=== PATIENT | male | born 1990 | race Caucasian/White ===

== ENCOUNTER → 2019-07-10 | Outpatient (CLI) | payer BC | LOC: RAD 08:20 | DX: R10.11 Right upper quadrant pain (principal); R94.5 Abnormal results of liver function studies ==

== ENCOUNTER 2019-08-18 21:53 | Emergency (ER) | payer BC ==
[~2019-08-18] VITALS: Ht 185.4 cm; Wt 110.5 kg
[2019-08-18] MEDS ORDERED: TRAMADOL 50 MG TAB PO (22:05)
[2019-08-18 22:29] LABS: BASO # 0.1 (0.02-0.10); EOS # 0.3 (0.04-0.40); HEMATOCRIT 44.1 % (42.0-52.0); HEMOGLOBIN 14.6 g/dL (13.5-18.0); LYMPH# 1.6 (1.50-4.00); MEAN CELL VOLUME 90 fl (78-100); MEAN CORPUSCULAR HEMOGLOBIN 30 pg (27-31); MEAN CORPUSCULAR HGB CONC 33 g/dL (33-37); MEAN PLATELET VOLUME 10.8 fl (7.4-10.4); MONO # 0.8 (0.20-0.80); NEU # 4.5 (1.40-6.50); PLATELET COUNT 226 K/mm3 (130-400); RED CELL DISTRIBUTION WIDTH 13.2 % (11.5-14.5); WHITE BLOOD COUNT 7.3 K/mm3 (4.8-10.8)
[2019-08-18 22:36] LABS: ALBUMIN 4.5 g/dL (3.5-5.0); POTASSIUM 3.9 mmol/L (3.5-5.1)
[2019-08-18 22:37] LABS: CALCIUM 8.5 mg/dL (8.3-10.5)
[2019-08-18 22:38] LABS: TOTAL PROTEIN 7.4 g/dL (6.4-8.3)
[2019-08-18 22:40] LABS: TOTAL BILIRUBIN 0.5 mg/dL (0.2-1.2)
[2019-08-19 00:06] VITALS: BP 142/80
== END 2019-08-18 23:54 | disposition home or self-care (01) ==
LOC: ED 21:53
PROVIDERS: Family Medicine
DX: K64.9 Unspecified hemorrhoids (principal); M54.9 Dorsalgia, unspecified; G89.29 Other chronic pain; Z79.891 Long term (current) use of opiate analgesic

== ENCOUNTER 2021-12-05 04:21 | Emergency (ER) | payer OTHER ==
[~2021-12-05] VITALS: Ht 185.4 cm; Wt 110.5 kg
[~2021-12-05 04:21] MED LIST: TRAMADOL 50 MG TAB PO
[2021-12-05 06:41] LABS: HEMATOCRIT 52.4 % (42.0-52.0); HEMOGLOBIN 18.1 g/dL (13.5-18.0); MEAN CELL VOLUME 89 fl (78-100); MEAN CORPUSCULAR HEMOGLOBIN 31 pg (27-31); MEAN CORPUSCULAR HGB CONC 35 g/dL (33-37); MEAN PLATELET VOLUME 11.1 fl (7.4-10.4); PLATELET COUNT 317 K/mm3 (130-400); RED BLOOD COUNT 5.86 M/mm3 (4.20-5.60); RED CELL DISTRIBUTION WIDTH 12.3 % (11.5-14.5); WHITE BLOOD COUNT 9.6 K/mm3 (4.8-10.8)
[2021-12-05 06:50] LABS: ALBUMIN 4.6 g/dL (3.5-5.0); POTASSIUM 3.9 mmol/L (3.5-5.1)
[2021-12-05 06:51] LABS: CALCIUM 10.5 mg/dL (8.3-10.5)
[2021-12-05 06:52] LABS: TOTAL PROTEIN 7.6 g/dL (6.4-8.3)
[2021-12-05 06:54] LABS: PROTHROMBIN TIME 10.4 SECONDS (9.0-12.0); TOTAL BILIRUBIN 1.1 mg/dL (0.2-1.2)
[2021-12-05 07:14] LABS: LYMPHOCYTE 7 % (20-51); MONOCYTE 8 % (3-10); NEUTROPHILS 83 % (42-75)
[2021-12-05 07:37] LABS: URINE APPEARANCE CLEAR; URINE BILIRUBIN NEGATIVE (NEGATIVE); URINE BLOOD NEGATIVE (NEGATIVE); URINE COLOR YELLOW; URINE GLUCOSE NEGATIVE (NEGATIVE); URINE KETONE NEGATIVE (NEGATIVE); URINE LEUKOCYTE ESTERASE NEGATIVE (NEGATIVE); URINE NITRATE NEGATIVE (NEGATIVE); URINE PROTEIN(semi-quant) NEGATIVE (NEGATIVE); URINE UROBILINOGEN NORMAL (NORMAL); URINE WBC 0 /hpf (0-3)
[2021-12-05] MEDS ORDERED: ZOFRAN ODT4 MG PO (08:54)
[2021-12-05 09:28] VITALS: BP 146/82
== END 2021-12-05 09:10 | disposition home or self-care (01) ==
LOC: ED 04:21
PROVIDERS: Nurse Practitioner
DX: B34.9 Viral infection, unspecified (principal); R11.2 Nausea with vomiting, unspecified; F17.210 Nicotine dependence, cigarettes, uncomplicated; Z28.310 Unvaccinated for COVID-19; Z20.822 Contact with and (suspected) exposure to COVID-19
CPT/HCPCS: J2405; J3010; J7030

== ENCOUNTER → 2022-08-05 | Outpatient (CLI) | payer OTHER ==
[~2022-08-05] MED LIST changes: +ZOFRAN ODT4 MG PO
[2022-08-05 15:48] LABS: BASO # 0.08 K/mm3 (0.02-0.10); EOS # 0.14 K/mm3 (0.04-0.40); EOS % 1.2 % (0.0-4.0); HEMATOCRIT 49.5 % (42.0-52.0); HEMOGLOBIN 17.1 g/dL (13.5-18.0); LYMPH# 1.15 K/mm3 (1.50-4.00); MEAN CELL VOLUME 91 fl (78-100); MEAN CORPUSCULAR HEMOGLOBIN 31 pg (27-31); MEAN CORPUSCULAR HGB CONC 35 g/dL (33-37); MEAN PLATELET VOLUME 10.4 fl (7.4-10.4); MONO # 0.77 K/mm3 (0.20-0.80); NEU # 9.44 K/mm3 (1.40-6.50); PLATELET COUNT 307 K/mm3 (130-400); RED BLOOD COUNT 5.44 M/mm3 (4.20-5.60); RED CELL DISTRIBUTION WIDTH 12.6 % (11.5-14.5); WHITE BLOOD COUNT 11.6 K/mm3 (4.8-10.8)
[2022-08-05 16:02] LABS: ALBUMIN 4.6 g/dL (3.5-5.0)
[2022-08-05 16:03] LABS: CALCIUM 9.3 mg/dL (8.3-10.5)
[2022-08-05 16:04] LABS: TOTAL PROTEIN 7.5 g/dL (6.4-8.3)
[2022-08-05 16:06] LABS: TOTAL BILIRUBIN 0.5 mg/dL (0.2-1.2)
== END ==
LOC: LAB 15:33
PROVIDERS: Nurse Practitioner Family
DX: K57.92 Diverticulitis of intestine, part unspecified, without perforation or abscess without bleeding (principal)